=== PATIENT | male | born 1995 | race Caucasian/White ===

== ENCOUNTER 2017-08-30 14:17 | Emergency (ER) | payer MEDICAID, OTHER ==
[2017-08-30 14:25] VITALS: BP 156/78
--- NOTE | 2017-08-30 14:29 | ED Physician Documentation ---
PD HPI LOWER EXT INJURY - Stated complaint Stated Complaint: KNEE PAIN - Chief complaint Chief Complaint: Ext Problem - History obtained from History obtained from: Patient - History of Present Illness PD HPI LOW EXT INJURY LOCATION: Other (To some extent he is always had problems with his left knee, has bouts of pain with it. 2 months ago he fell off of his porch, did not really land on the knee but his chronic knee pain got worse and it has been especially bad over the last 2 weeks. He points the area behind the medial patella as the source of pain in his says it is bad going downstairs but not upstairs and is worse with knee flexion.) Review of Systems Constitutional: reports: Reviewed and negative Cardiac: reports: Reviewed and negative Respiratory: reports: Reviewed and negative PD PAST MEDICAL HISTORY - Past Medical History Past Medical History: No - Past Surgical History Past Surgical History: No - Present Medications Home Medications: Ambulatory Orders Medication Instructions Recorded Confirmed No Known Home Medications [No 08/30/17 08/30/17 Known Home Medications] - Allergies Allergies/Adverse Reactions: Allergies Allergy/AdvReac Type Severity Reaction Status Date / Time No Known Drug Allergies Allergy Verified 08/30/17 14:24 - Social History Does the pt smoke?: Yes Smoking Status: Current every day smoker Does the pt drink ETOH?: No Does the pt have substance abuse?: No - Immunizations Immunizations are current?: Yes PD ED PE NORMAL - Vitals Vital signs reviewed: Yes - General General: Alert and oriented X 3, No acute distress, Well developed/nourished - Extremities Extremities: Other (Left knee is nontender, he winces with extreme flexion, there is no effusion. Ligamentous testing is normal and grind testing is negative. I do not appreciate any crepitance behind the patella.) - Neuro Neuro: Alert and oriented X 3, Normal speech Results - Vitals Vitals: Vital Signs - 24 hr 08/30/17 14:20 Temperature 37.4 C Heart Rate 92 Respiratory 18 Rate Blood Pressure 156/78 H O2 Saturation 99 Oxygen O2 Source Room air - Rads (name of study) 4v L knee Radiology: EMP read contemporaneously (normal) PD MEDICAL DECISION MAKING - ED course ED course: 22-year-old with subacute to chronic but worsening left knee pain, could be chondromalacia. Examination and x-rays are normal. Advised to follow-up with Ortho Departure - Departure Disposition: Home, Self Care Clinical Impression: Left knee pain Qualifiers: Chronicity: chronic Qualified Code(s): M25.562 - Pain in left knee; G89.29 - Other chronic pain; G89.29 - Other chronic pain Condition: Good Record reviewed to determine appropriate education?: Yes Instructions: ED Knee Pain [facility] Follow-Up: [facility] [Provider Group] - Within 1 week Comments: Your blood pressure was elevated today on check into the emergency department. This does not mean that you have hypertension, it is a common phenomenon to come to the emergency department and have elevated blood pressure. I recommend that you see your primary care physician within the week to have it rechecked when you are feeling better.
--- NOTE | 2017-08-30 15:06 | XRAY Report ---
EXAM: LEFT KNEE RADIOGRAPHY EXAM DATE: 08/30/2017 02:56 PM. CLINICAL HISTORY: Knee pain. COMPARISON: None. TECHNIQUE: 4 views. FINDINGS: Bones: Normal. No fractures or bone lesions. Normal variant fabella present. Joints: Normal. No effusion. No subluxations. Soft Tissues: No soft tissue swelling. IMPRESSION: Normal knee radiography. [facility] Referring Provider Line: [phone] SITE ID: [id number]
== END 2017-08-30 15:19 | disposition home or self-care (01) ==
LOC: ED 14:17
DX: M25.562 Pain in left knee (principal); G89.29 Other chronic pain; R03.0 Elevated blood-pressure reading, without diagnosis of hypertension; Z91.81 History of falling; F17.200 Nicotine dependence, unspecified, uncomplicated
CPT/HCPCS: 99282; 99283

== ENCOUNTER 2020-10-13 17:11 | Outpatient (CLI) | payer OTHER | END 2020-10-13 17:12 | disposition home or self-care (01) | LOC: COV 17:11 | PROVIDERS: ATTEND Family Medicine | DX: R50.9 Fever, unspecified (principal); R05 Cough; R06.02 Shortness of breath; M79.10 Myalgia, unspecified site; R53.83 Other fatigue; R07.0 Pain in throat; R43.8 Other disturbances of smell and taste; R09.81 Nasal congestion; J34.89 Other specified disorders of nose and nasal sinuses; R11.2 Nausea with vomiting, unspecified; Z20.822 Contact with and (suspected) exposure to COVID-19 ==

== ENCOUNTER 2021-05-06 10:00 | Outpatient (CLI) | payer OTHER | END 2021-05-06 23:59 | LOC: LAB.S 10:00 | PROVIDERS: ATTEND Physician Assistant Medical | DX: J02.9 Acute pharyngitis, unspecified (principal); R05.1 Acute cough; Z20.822 Contact with and (suspected) exposure to COVID-19 | CPT/HCPCS: 87275; 87276 ==

== ENCOUNTER 2021-06-30 14:33 | Emergency (ER) | payer OTHER ==
[2021-06-30 15:54] LABS: BILIRUBIN,URINE NEGATIVE (NEGATIVE); CLARITY,URINE CLEAR (CLEAR); GLUCOSE, URINE (UA) NEGATIVE (NEGATIVE); KETONES,URINE (UA) NEGATIVE (NEGATIVE); LEUKOCYTE ESTERASE, URINE NEGATIVE (NEGATIVE); NITRITE,URINE NEGATIVE (NEGATIVE); OCCULT BLOOD,URINE NEGATIVE (NEGATIVE); PROTEIN,URINE NEGATIVE (NEGATIVE); UROBILINOGEN,URINE 0.2 (NORMAL) E.U./dL (NORMAL)
--- NOTE | 2021-06-30 16:23 | ED Physician Documentation ---
History of Present Illness - Stated complaint Stated Complaint: MALE - Chief complaint Chief Complaint: General - History obtained from History obtained from: Patient - History of Present Illness Timing: Today Pain level max: 0 Pain level now: 0 - Additonal information Additional information: 26-year-old male presents to the emergency department stating he noticed a mass at the base of his penis. This started a few weeks ago and has gradually progressed in size. He states there was a small amount of white drainage earlier. There is no pain. Denies any trauma. He is . Denies any STD exposure. Has never had similar symptoms previously. Nothing makes it better or worse. Review of Systems Constitutional: denies: Fever, Chills Throat: denies: Sore throat Cardiac: denies: Chest pain / pressure Respiratory: denies: Cough GI: denies: Nausea, Vomiting, Diarrhea : denies: Dysuria, Frequency, Hesitancy Skin: denies: Rash Musculoskeletal: denies: Neck pain, Back pain Neurologic: denies: Headache PD PAST MEDICAL HISTORY - Past Medical History Past Medical History: No - Past Surgical History Past Surgical History: No - Present Medications Home Medications: Ambulatory Orders Medication Instructions Recorded Confirmed No Known Home Medications 08/30/17 08/30/17 - Allergies Allergies/Adverse Reactions: Allergies Allergy/AdvReac Type Severity Reaction Status Date / Time No Known Drug Allergies Allergy Verified 06/30/21 14:38 - Social History Does the pt smoke?: Yes Smoking Status: Current every day smoker Does the pt drink ETOH?: No Does the pt have substance abuse?: No - Immunizations Immunizations are current?: Yes PD ED PE NORMAL - Vitals Vital signs reviewed: Yes - General General: Alert and oriented X 3, No acute distress, Well developed/nourished - HEENT HEENT: Moist mucous membranes - Cardiac Cardiac: RRR - Respiratory Respiratory: No respiratory distress, Clear bilaterally - Abdomen Abdomen: Soft, Non tender, Non distended - Male Male : Other (Normal testicular exam. There is a 3 x 3 cm round firm mass near the base of the penis. Appears to be subcutaneous. No skin changes. No drainage.) - Derm Derm: Warm and dry - Extremities Extremities: No deformity - Neuro Neuro: Alert and oriented X 3 - Psych Psych: Normal mood, Normal affect Results - Vitals Vitals: Vital Signs - 24 hr 06/30/21 06/30/21 14:38 18:48 Temperature 36.5 C 36.6 C Heart Rate 100 88 Respiratory 16 16 Rate Blood Pressure 150/90 H 130/80 O2 Saturation 100 100 Oxygen O2 Source Room air - Labs Labs: Laboratory Tests 06/30/21 15:45 Urine Color YELLOW Urine Clarity CLEAR Urine pH 6.0 Ur Specific [place]cher >=1.030 H Urine Protein NEGATIVE Urine Glucose (UA) NEGATIVE Urine Ketones NEGATIVE Urine Occult Blood NEGATIVE Urine Nitrite NEGATIVE Urine Bilirubin NEGATIVE Urine Urobilinogen 0.2 (NORMAL) Ur Leukocyte Esterase NEGATIVE Ur Microscopic Review NOT INDICATED Urine Culture Comments NOT INDICATED - Rads (name of study) Scrotal ultrasound Radiology: Final report received, EMP read contemporaneously, See rad report PD MEDICAL DECISION MAKING - ED course Complexity details: reviewed results, re-evaluated patient, considered differential, d/w patient ED course: 26-year-old male presents to the emergency department with a mass at the base of the penis. Unclear etiology. Normal urinalysis. No evidence of STD. Does not appear consistent with an abscess. Denies any trauma. I spoke with Naveed Mckay who will put in a referral urgently for urology in [place]. They will call the patient within the next 2 days for an urgent appointment. A copy of the ultrasound was sent with the patient. Patient counseled regarding signs and symptoms for which I believe and urgent re-evaluation would be necessary. Patient with good understanding of and agreement to plan and is comfortable going home at this time This document was made in part using voice recognition software. While efforts are made to proofread this document, sound alike and grammatical errors may occur. IMPRESSION: 1.No evidence of testicular torsion. 2.Heterogeneous mass at the base of the penis as detailed above. Differential considerations include hematoma, hemangioma, or a neoplastic process. Departure - Departure Disposition: 01 Home, Self Care Clinical Impression: Mass Condition: Good Instructions: ED Testicular Pain [facility] Follow-Up: [facility] [Provider Group] Comments: The cause of your symptoms is unclear and you need to follow up closely with urology for further care. Take the copy of your ultrasound with you. I spoke with Dr. Hall from [facility], he is putting in a referral to urology for you. They should contact you within 2 business days for an appointment. This will likely be in [place]. Ultrasound Results: FINDINGS: Right hemiscrotum: The testis measures 4.3 x 2.1 x 3.6 cm. Microlithiasis; otherwise, homogeneous echotexture. Normal venous and arterial flow. No hydrocele or varicocele. No significant abnormality of the epididymis. Hypoechoic lesion in the epididymal head, measuring up to 2.1 mm, compatible with a cyst or spermatocele. Left hemiscrotum: The testis measures 5.2 x 2.2 x 3.8 cm. Homogeneous echotexture. Normal venous and arterial flow. Small hydrocele. No varicocele. No significant abnormality of the epididymis. A heterogeneous, 3.5 x 2.2 x 4.1 cm mass is seen at the base of the penis. IMPRESSION: 1.No evidence of testicular torsion. 2.Heterogeneous mass at the base of the penis as detailed above. Differential considerations include hematoma, hemangioma, or a neoplastic process. Discharge Date/Time: 06/30/21 18:47
--- NOTE | 2021-06-30 17:15 | Ultrasound Report ---
PROCEDURE: Testicle w/Doppler INDICATIONS: lump lower testicle area TECHNIQUE: Real-time scanning was performed of the scrotum and testicles, with image documentation. Color and p ulse Doppler interrogation was performed of both testicles. COMPARISON: None. TECHNIQUE: Sonographic evaluation of the scrotum was performed. FINDINGS: Right hemiscrotum: The testis measures 4.3 x 2.1 x 3.6 cm. Microlithiasis; otherwise, homogeneous echotexture. Normal venous and arterial flow. No hydrocele or varicocele. No significant abnormality of the epididymis. Hypoechoic lesion in the epididymal head, measuring up to 2.1 mm, compatible with a cyst or spermatocele. Left hemiscrotum: The testis measures 5.2 x 2.2 x 3.8 cm. Homogeneous echotexture. Normal venous and arterial flow. Small hydrocele. No varicocele. No significant abnormality of the epididymis. A heterogeneous, 3.5 x 2.2 x 4.1 cm mass is seen at the base of the penis. IMPRESSION: 1.No evidence of testicular torsion. 2.Heterogeneous mass at the base of the penis as detailed above. Differential considerations include hematoma, hemangioma, or a neoplastic process. Reviewed by: Cal Kruse MD on 06/30/2021 5:14 PM PST Approved by: Cal Kruse MD on 06/30/2021 5:14 PM PST Station ID: [id number]
[2021-06-30 18:49] VITALS: BP 130/80
== END 2021-06-30 18:47 | disposition home or self-care (01) ==
LOC: ED 14:33
DX: N48.89 Other specified disorders of penis (principal); F17.200 Nicotine dependence, unspecified, uncomplicated
CPT/HCPCS: 81001; 81003; 87086; 93975; 99283; 99284